=== PATIENT | female | born 1985 | race American Indian/Alaskan Native ===

== ENCOUNTER 2020-04-11 16:45 | Emergency (ER) | payer MEDICAID ==
[~2020-04-11] VITALS: Ht 165.1 cm; Wt 63.6 kg
[2020-04-11 18:56] VITALS: BP 122/80
== END 2020-04-11 19:02 | disposition home or self-care (01) ==
LOC: EMS 16:45
DX: Z59.0 Homelessness (principal)
CPT/HCPCS: 99283; Z7502